=== PATIENT | female | born 1975 | race African-American/Black ===

== ENCOUNTER 2018-12-20 22:10 | Emergency (ER) | payer SELFPAY ==
[~2018-12-20] VITALS: Ht 160 cm; Wt 114.0 kg
[2018-12-20] MEDS ORDERED: KETOROLAC 60MG/2ML VIAL IM ONE (22:45)
[2018-12-20 23:46] VITALS: BP 155/74
== END 2018-12-20 23:48 | disposition home or self-care (01) ==
LOC: ER 22:10
DX: S83.92XA Sprain of unspecified site of left knee, initial encounter (principal); W18.39XA Other fall on same level, initial encounter; Y93.01 Activity, walking, marching and hiking; Y92.89 Other specified places as the place of occurrence of the external cause; Y99.8 Other external cause status
CPT/HCPCS: 73562; 96372; 99283; J1885